=== PATIENT | female | born 1955 | race Two or more races ===

== ENCOUNTER 2017-09-05 09:08 | Outpatient (CLI) | payer OTHER ==
[~2017-09-05] VITALS: Ht 45.7 cm; Wt 69.9 kg
[~2017-09-05 09:08] MED LIST: TENORMIN25 MG; [UNRECOGNIZED DRUG - OTHER]
== END 2017-09-05 09:35 | disposition home or self-care (01) ==
LOC: OFIC 805 09:08
DX: K21.9 Gastro-esophageal reflux disease without esophagitis (principal); R09.81 Nasal congestion; R49.0 Dysphonia

== ENCOUNTER 2018-04-14 09:26 | Outpatient (CLI) | payer OTHER ==
[~2018-04-14] VITALS: Ht 182.9 cm; Wt 69.9 kg
== END 2018-04-14 09:40 | disposition home or self-care (01) ==
LOC: OFIC 805 09:26
DX: K21.0 Gastro-esophageal reflux disease with esophagitis (principal); R49.0 Dysphonia; R09.81 Nasal congestion; R09.82 Postnasal drip

== ENCOUNTER 2021-04-17 04:49 | Day surgery (SDC) | payer OTHER ==
[~2021-04-17 04:49] MED LIST changes: +B12 ACTIVE1000 MCG PO; +CENTRUM SILVER1 EAC3 PO; +ECOTRIN81 MG PO; +HYDRODIURIL12.5 MG PO; +LIPITOR20 MG PO; +LORAZEPAM0.5 MG PO; +METFORMIN HCL500 M3 PO; +OMEPRAZOLE40 MG PO; +ROSUVASTATIN CAL5 MG PO; +ZOLOFT20 MG/1 ML PO
== END 2021-04-17 17:05 | disposition home or self-care (01) ==
LOC: CIR.AMB 04:49
PROVIDERS: ATTEND Obstetrics & Gynecology
DX: N84.0 Polyp of corpus uteri (principal); M19.90 Unspecified osteoarthritis, unspecified site; G62.9 Polyneuropathy, unspecified

== ENCOUNTER 2022-05-21 07:10 | Outpatient (CLI) | payer OTHER | END 2022-05-21 07:12 | disposition home or self-care (01) | LOC: NUCLEAR 07:10 | PROVIDERS: ATTEND Specialist | DX: I11.9 Hypertensive heart disease without heart failure (principal); E11.9 Type 2 diabetes mellitus without complications; I73.9 Peripheral vascular disease, unspecified; I25.9 Chronic ischemic heart disease, unspecified | CPT/HCPCS: 78452; 93017; A9500 ==

== ENCOUNTER → 2024-09-14 08:15 | Outpatient (CLI) | payer OTHER | END | disposition home or self-care (01) | LOC: NUCLEAR 08:15 | PROVIDERS: ATTEND Specialist | DX: I65.29 Occlusion and stenosis of unspecified carotid artery (principal); E11.9 Type 2 diabetes mellitus without complications ==